=== PATIENT | male | born 1960 | race Caucasian/White ===

== ENCOUNTER 2016-06-30 03:15 | Inpatient (IN) | payer MEDICAID ==
[~2016-06-30] VITALS: Ht 177.8 cm; Wt 91.8 kg
[2016-06-30] MEDS ORDERED: VIST50 PO (03:24)
[2016-06-30] MEDS ORDERED: ATEN25 PO (03:24)
[2016-06-30] MEDS ORDERED: SIMV-261 PO (03:24)
[2016-06-30] MEDS ORDERED: LISI-662 PO (03:24)
[2016-06-30] MEDS ORDERED: LORazepam 2 MG/ML VIAL IM ONE (04:00)
[2016-06-30] MEDS ORDERED: ACETAMINOPHEN 325 MG TABLET PO PRN (04:00)
[2016-06-30] MEDS ORDERED: LOPERAMIDE HCL 2 MG CAPSULE PO PRN (04:00)
[2016-06-30] MEDS ORDERED: MAG HYDROX/AL HYDROX/SIMETH ES 30 ML SUSPENSION UDCUP PO PRN (04:00)
[2016-06-30] MEDS ORDERED: HALOPERIDOL LACTATE 5 MG/ML VIAL IM ONE (04:00)
[2016-06-30] MEDS ORDERED: MAGNESIUM HYDROXIDE SUSPENSION 30 ML UDCUP PO PRN (04:00)
[2016-06-30] MEDS ORDERED: ASPI81TA2 PO (04:13)
[2016-06-30] MEDS ORDERED: CHLO100T24 PO (04:14)
[2016-06-30] MEDS ORDERED: PANT40TA25 PO (04:14)
[2016-06-30] MEDS ORDERED: ESCI20TA PO (04:14)
[2016-06-30 04:16] LABS: BASOPHILS % (AUTO) 0.6 % (0.0-2.0); EOSINOPHILS % (AUTO) 0.8 % (1.0-6.0); HEMATOCRIT 46.5 % (41-53); HEMOGLOBIN 15.1 g/dL (13.5-17.5); LYMPHOCYTES # (AUTO) 1.4 K/uL (1.0-4.8); LYMPHOCYTES % (AUTO) 14.1 % (22.0-44.0); MEAN CORPUSCULAR HEMOGLOBIN 29.2 pg (26.0-34.0); MEAN CORPUSCULAR HGB CONC 32.6 G/dL (31.0-37.0); MEAN CORPUSCULAR VOLUME 89 fL (80-100); MONOCYTES # (AUTO) 0.7 K/uL (0.1-1.0); MONOCYTES % (AUTO) 7.5 % (2.0-9.0); NEUTROPHILS # (AUTO) 7.6 K/uL (1.8-7.7); PLATELET COUNT (AUTO) 300 K/uL (150-450); RED BLOOD CELL COUNT(AUTO) 5.19 MIL/uL (4.50-5.90); RED CELL DISTRIBUTION WIDTH 15.3 % (11.5-14.5); WHITE BLOOD COUNT (AUTO) 9.9 K/uL (4.5-11.0)
[2016-06-30 04:42] LABS: ALANINE AMINOTRANSFERASE 28 U/L (12-78); ALBUMIN 3.9 g/dL (3.4-5.0); ASPARTATE AMINOTRANSFERASE 21 U/L (15-37); BILIRUBIN,TOTAL 0.7 mg/dL (0.1-1.0); CALCIUM, TOTAL 8.2 mg/dL (8.8-10.5); CARBON DIOXIDE 22 mmol/L (22-29); CREATININE 1.51 mg/dL (0.60-1.30); GLOMERULAR FILTR. RATE CALC 49 mL/min (>60); TOTAL PROTEIN, SERUM 7.8 g/dL (6.4-8.2); UREA NITROGEN, BLOOD 15 mg/dL (7-18)
[2016-06-30 04:45] LABS: ANION GAP 13 mmol/L (8-16); CHLORIDE 104 mmol/L (98-107); POTASSIUM 3.6 mmol/L (3.5-5.1); SODIUM SERUM 139 mmol/L (136-145)
[2016-06-30] MEDS ORDERED: HydrOXYzine PAMOATE 25 MG CAPSULE PO PRN (17:45)
[2016-06-30 17:55] VITALS: BP 109/60
[2016-06-30] MEDS: ChlorproMAZINE HCL 100 MG TABLET PO SCH (18:26)
[2016-07-01 06:58] VITALS: BP 123/76
[2016-07-01 08:40] VITALS: BP 118/78
[2016-07-01] MEDS: ESCITALOPRAM OXALATE 20 MG TABLET PO SCH (08:59)
[2016-07-01] MEDS: ChlorproMAZINE HCL 100 MG TABLET PO SCH ×2 (08:59→17:20)
[2016-07-01] MEDS ORDERED: BENZOCAINE/MENTHOL LOZENGE MM PRN (13:45)
[2016-07-01] MEDS ORDERED: ONDANSETRON HCL 4 MG TABLET PO PRN (13:45)
[2016-07-01 16:10] VITALS: BP 135/89
[2016-07-01] MEDS: LORazepam 2 MG TABLET PO PRN (17:20)
[2016-07-01] MEDS: HALOPERIDOL 5 MG TABLET PO PRN (19:08)
[2016-07-01] MEDS: ZOLPIDEM TARTRATE 10 MG TABLET PO PRN (20:56)
[2016-07-02 01:39] VITALS: BP 135/86
[2016-07-02 06:28] VITALS: BP 133/102
[2016-07-02] MEDS: LORazepam 2 MG TABLET PO PRN ×3 (06:31→16:18)
[2016-07-02] MEDS: ASPIRIN 81 MG CHEWABLE TABLET PO SCH (08:40)
[2016-07-02] MEDS: LISINOPRIL 20 MG TABLET PO SCH (08:40)
[2016-07-02] MEDS: ChlorproMAZINE HCL 100 MG TABLET PO SCH ×2 (08:40→16:16)
[2016-07-02] MEDS: PANTOPRAZOLE SODIUM 40 MG DR TABLET PO SCH (08:40)
[2016-07-02] MEDS: ATENOLOL 25 MG TABLET PO SCH (08:41)
[2016-07-02] MEDS: ESCITALOPRAM OXALATE 20 MG TABLET PO SCH (08:41)
[2016-07-02] MEDS: SIMVASTATIN 40 MG TABLET PO SCH (08:41)
[2016-07-02 09:15] VITALS: BP 126/79
[2016-07-02 10:14] LABS: ANION GAP 7 mmol/L (8-16); CALCIUM, TOTAL 8.2 mg/dL (8.8-10.5); CARBON DIOXIDE 28 mmol/L (22-29); CHLORIDE 105 mmol/L (98-107); CHOL/HDL RATIO 3.3 (4.2-7.3); GLOMERULAR FILTR. RATE CALC > 60 mL/min (>60); POTASSIUM 4.3 mmol/L (3.5-5.1); SODIUM SERUM 140 mmol/L (136-145); THYROID STIMULATING HORMONE 2.92 uIU/mL (0.36-3.74); UREA NITROGEN, BLOOD 12 mg/dL (7-18)
[2016-07-02] MEDS: HALOPERIDOL 5 MG TABLET PO PRN ×2 (11:57→20:00)
[2016-07-02 16:12] VITALS: BP 115/81
[2016-07-02] MEDS: ZOLPIDEM TARTRATE 10 MG TABLET PO PRN (20:00)
[2016-07-03 05:50] VITALS: BP 140/90
[2016-07-03 07:02] VITALS: BP 137/96
[2016-07-03] MEDS: HALOPERIDOL 5 MG TABLET PO PRN (07:04)
[2016-07-03] MEDS: LORazepam 2 MG TABLET PO PRN (07:04)
[2016-07-03 08:55] VITALS: BP 132/73
[2016-07-03] MEDS: ATENOLOL 25 MG TABLET PO SCH (09:39)
[2016-07-03] MEDS: ASPIRIN 81 MG CHEWABLE TABLET PO SCH (09:39)
[2016-07-03] MEDS: SIMVASTATIN 40 MG TABLET PO SCH (09:39)
[2016-07-03] MEDS: PANTOPRAZOLE SODIUM 40 MG DR TABLET PO SCH (09:39)
[2016-07-03] MEDS: LISINOPRIL 20 MG TABLET PO SCH (09:39)
[2016-07-03] MEDS: ChlorproMAZINE HCL 100 MG TABLET PO SCH (09:40)
[2016-07-03] MEDS: ESCITALOPRAM OXALATE 20 MG TABLET PO SCH (09:40)
== END 2016-07-03 15:20 | disposition home or self-care (01) | DRG 750 ==
LOC: EMS 03:17 → EEVIPCON 03:17 → B2S 15:52
PROVIDERS: ADMIT Psychiatry & Neurology Psychiatry; ATTEND Psychiatry & Neurology Psychiatry
DX: F25.0 Schizoaffective disorder, bipolar type (principal); N17.9 Acute kidney failure, unspecified; R45.851 Suicidal ideations; F15.20 Other stimulant dependence, uncomplicated; E83.51 Hypocalcemia; J44.9 Chronic obstructive pulmonary disease, unspecified; E86.0 Dehydration; I10 Essential (primary) hypertension; E78.00 Pure hypercholesterolemia, unspecified; F41.9 Anxiety disorder, unspecified; F17.210 Nicotine dependence, cigarettes, uncomplicated; F60.3 Borderline personality disorder; F12.90 Cannabis use, unspecified, uncomplicated; F14.90 Cocaine use, unspecified, uncomplicated; K59.00 Constipation, unspecified; K21.9 Gastro-esophageal reflux disease without esophagitis; Z71.6 Tobacco abuse counseling; Z71.51 Drug abuse counseling and surveillance of drug abuser; Z59.0 Homelessness; Z79.899 Other long term (current) drug therapy; Z79.82 Long term (current) use of aspirin; Z98.890 Other specified postprocedural states; Z91.5 Personal history of self-harm; Z62.819 Personal history of unspecified abuse in childhood; Z81.8 Family history of other mental and behavioral disorders
CPT/HCPCS: 82306; 84443; 96372; 99285; G0480; J1630; J2060